=== PATIENT | female | born 1965 ===

== ENCOUNTER 2019-02-08 05:55 | Day surgery (SDC) | payer OTHER | END 2019-02-08 10:50 | disposition home or self-care (01) | LOC: AMB-ENDOS 05:55 | DX: D13.1 Benign neoplasm of stomach (principal); K57.30 Diverticulosis of large intestine without perforation or abscess without bleeding; K64.1 Second degree hemorrhoids; K44.9 Diaphragmatic hernia without obstruction or gangrene ==